=== PATIENT | female | born 1995 | race Hispanic/Latino ===

== ENCOUNTER → 2020-03-29 | Outpatient (CLI) | payer OTHER, SELFPAY | END | disposition home or self-care (01) | LOC: RAH 12:41 | PROVIDERS: ATTEND Physical Medicine & Rehabilitation | DX: M51.26 Other intervertebral disc displacement, lumbar region (principal); M48.061 Spinal stenosis, lumbar region without neurogenic claudication; M41.119 Juvenile idiopathic scoliosis, site unspecified; M48.04 Spinal stenosis, thoracic region | CPT/HCPCS: 72082; 72146; 72148 ==